=== PATIENT | male | born 1960 | race Caucasian/White ===

== ENCOUNTER 2016-07-27 13:20 | Emergency (ER) | payer OTHER ==
--- NOTE | ~2016-07-27 | CR72 ---
[facility]. [facility] A Service of [facility] & [facility] RADIOLOGY TEXT RESULTS PATIENT: JÚNIOR TURNER LOCATION: SED : 60 UNIT #: [id number] AGE: [address]: Boubacar Izaguirre MD SEX: M ORDER DR: [id number] [place] [address] [id number] E MR#: [id number] Acc #: [id number] NAME: JÚNIOR TURNER : 1960 SEX: M STUDY DATE/TIME: 07/27/2016 13:42 UNIT: SED ROOM: STUDY DESCRIPTION: CR Chest Single View Portable Attending Physician: Boubacar Izaguirre M.D. Ordering Physician: Boubacar Izaguirre M.D. Primary Care Physician: Santy Dickinson M.D. MEDICAL IMAGING REPORT This report is preliminary unless electronic signature is present. EXAM Portable chest HISTORY: Shortness of air x2 days COMPARISON 02/15/2013 FINDINGS Portable view of the chest demonstrates moderate lung volumes satisfactory technique. No infiltrates or effusions. Right lung parenchymal calcification suggest prior granulomas disease. The heart, mediastinum, great vessels and bony thorax unremarkable. Overall no acute findings. Dictated by... Robert Pinon M.D. THIS IS AN ELECTRONICALLY VERIFIED REPORT Robert Pinon M.D. at 07/27/2016 3:32 PM Keny TD: 07/27/2016 15:11 JOB #: [id number] MEDICAL IMAGING REPORT Page 1 of 1
--- NOTE | ~2016-07-27 | EKG ---
PATIENT: JÚNIOR TURNER UNIT #: [id number] Ventricular Rate: 82 BPM Atrial Rate: 82 BPM P-R Interval: 160 ms QRS Duration: 90 ms Q-T Interval: 342 ms QTC Calculation(Bezet): 399 ms P [place]: 43 degrees Calculated R [place]: 60 degrees Calculated T [place]: 35 degrees Diagnosis Line: Normal sinus rhythm Diagnosis Line: Normal ECG Diagnosis Line: When compared with ECG of 15-FEB-2013 12:12, Diagnosis Line: No significant change was found Diagnosis Line: Confirmed by LILY ALVAREZ MD ([id number]) on Diagnosis Line: 07/30/2016 12:03:02 PM INTERPRETING MD: ANTONIO HOWARD
[~2016-07-27 13:20] MED LIST: ALBUTEROL17 GM INH; AMBIEN12.5 M1 PO; AZITHROMYCIN250 MG PO; BACITRACIN30 GM TOP; BENZONATATE PO; DIOVAN PO; FLEXERIL PO; FLEXERIL10 MG; HYDROCODON-ACE1 EAC5 PO; KEFLEX PO; LISINOPRIL; LOPRESSOR100 MG PO; NAPROXEN PO; NEURONTIN; NO MEDICATIONS; OXYCONTIN; PERCOCET; PRAVACHOL; PREDNISONE PO; SEROQUEL; SKELAXIN PO; TEMAZEPAM PO; TESSALON PERLE100 M1; TESSALON200 MG PO; TRAZODONE PO; VICODIN 5/1 TAB 5/50 PO; WELLBUTRIN75 M1 PO
[2016-07-27 14:10] LABS: BASOPHIL# 0.1 X10e3 (0-0.3); BASOPHIL% 0.7 % (0-2.5); EOSINOPHIL# 0.5 X10e3 (0-0.7); EOSINOPHIL% 6.4 % (0.0-7.0); HEMATOCRIT 37.7 % (38.0-50.0); HEMOGLOBIN 12.8 gm/dL (13.0-16.0); LYMPHOCYTE# 1.9 X10e3 (1.0-3.5); LYMPHOCYTE% 23.5 % (17.0-45.0); MEAN CELL VOLUME 85.9 FL (83-96); MEAN CORPUSCULAR HEMOGLOBIN 29.1 PG (28-34); MEAN CORPUSCULAR HGB CONC 33.9 g/dL (30-36); MEAN PLATELET VOLUME 6.7 FL (6.5-11.5); MONOCYTE# 0.7 X10e3 (0-1.0); MONOCYTE% 8.5 % (3.0-12.0); NEUTROPHIL# 5.1 X10e3 (1.5-7.1); NEUTROPHIL% 60.9 % (40-75); PLATELET COUNT 389 X10e3 (140-420); RED BLOOD COUNT 4.39 X10e (3.90-5.60); RED CELL DISTRIBUTION WIDTH 14.4 % (11.0-15.5); WHITE BLOOD COUNT 8.3 X10e3 (4.0-10.5)
[2016-07-27 14:21] LABS: DIFF IND NO
[2016-07-27 14:25] LABS: POC - CKMB 1.8 ng/mL (0.0-7.9); POC - TROPONIN <0.05 ng/mL (<=0.05)
[2016-07-27 14:31] LABS: ALBUMIN SERUM 4.3 g/dL (3.5-5.0); BILIRUBIN, DIRECT 0.1 mg/dL (0.0-0.2); BILIRUBIN,INDIRECT 0.1 mg/dL (0.0-0.9); BILIRUBIN,TOTAL 0.2 mg/dL (0.2-2.0); BUN/CREATININE RATIO 21.17; CALCIUM SERUM 9.4 mg/dL (8.4-10.2); CREATININE SERUM 1.7 mg/dL (0.6-1.4); GLOM FILT RATE Estimated 44.1 mL/min (>60); POTASSIUM 4.9 mmol/L (3.5-5.1); PROTEIN TOTAL SERUM 7.9 g/dL (6.0-8.3)
== END 2016-07-27 15:49 | disposition home or self-care (01) ==
LOC: SED 13:20
PROVIDERS: Emergency Medicine
DX: J44.1 Chronic obstructive pulmonary disease with (acute) exacerbation (principal); I10 Essential (primary) hypertension; F17.200 Nicotine dependence, unspecified, uncomplicated; E78.5 Hyperlipidemia, unspecified
CPT/HCPCS: 36415; 71010; 80048; 80076; 82553; 83880; 84484; 85025; 93005; 94640; 96374; 99284; J1100